=== PATIENT | female | born 1950 | race Caucasian/White ===

== ENCOUNTER 2017-02-03 12:55 | Day surgery (SDC) | payer MEDICARE ==
[~2017-02-03] VITALS: Ht 160 cm; Wt 59.4 kg
[~2017-02-03 12:55] MED LIST: ATEN25TA PO; FURO40TA4 PO; LACT10SO27 PO; Lactated Ringer's 1,000 ML IV ONE; MULT-1018 PO; OMEP20TA24 PO; SPIR100T3 PO
[2017-02-03] MEDS ORDERED: Propofol 10,000 mCg/mL 20 mL Inj ONE (12:56)
[2017-02-03] MEDS ORDERED: Lidocaine PF 1% 30 mL Inj ONE (12:56)
[2017-02-03 13:37] VITALS: BP 97/63; PULSE 90; RESP 16; O2SAT 94
--- NOTE | 2017-02-03 14:18 | PCM.HPANE ---
Patient Data Date of Service: Feb 03, 2017 Surgeon Admitting Provider: Attending Provider:Mike Alvarado MD Primary Care Physician:Other,Physician Other Provider:Lloyd Martinez Anesthesia Reason for Visit Alcoholic Cirrhosis Of Liver Ht/WT & BMI Height (Feet): 5 Height (Inches): 3 Weight (Kilograms): 59.4 Body Mass Index 23.00 Allergies Coded Allergies: No Known Drug Allergies (Verified Allergy, Unknown, 02/03/17) Past Anesthesia History Anesthesia History: Denies:: Anesthesia Reactions, Fam Anesthesia Reaction, Fam Malignant Hypertherm, Malignant Hyperthermia Diabetes History Hx Diabetes?: No MRSA MRSA: No Medications Hypertension Medication: Yes Home Meds Incl Beta Ashutosh: Yes Date Beta Ashutosh Taken: Feb 03, 2017 Time Beta Ashutosh Taken: 08:00 Reported Medications Spironolactone 100 Mg [id number] Mg PO DAILY #30 TABLET Ref 0 02/02/17 Omeprazole Magnesium (Prilosec Otc)20 Mg Tablet.dr20 Mg PO DAILY #1 PKG Ref 0 02/02/17 Multivitamin (Multi Vitamin Daily)1 Each Tablet1 Each PO DAILY 30 Days Ref 0 02/02/17 Lactulose 10 Gm/15 Ml [id number] Gm PO BID 02/02/17 Furosemide 40 Mg Cakpjb01 Mg PO DAILY 02/02/17 Atenolol 25 Mg Zcwlik83 Mg PO DAILY #30 TABLET Ref 0 02/02/17 History History of ENT Problems?: No Hx of Heart Problems?: Yes Cardiovascular History: Positive for:: Irregular Heartbeat (Hx SVT in 1996) Denies:: AICD Pacemaker Valvular Heart Disease Hx of Respiratory Problem?: No Neurological History: Denies:: CVA Hx of GI Problems?: Yes Gastrointestinal History: Positive for:: Cirrhosis (paracentesis 2 weeks ago) Liver Disease Female Hx: Denies:: Currently (raad) Psycho Social History: Positive for:: Hx Depression Hx Surgeries?: Yes (rectal ca-surgery, cone biopsy-cervix) Hx Any Other Health Problems?: No Hx Diabetes: No Hx Alcohol Use: NoHx Substance Use: Yes Smoking Status: Current Every Day Smoker Stop/Bang Treated for Sleep Apnea?: No Do You Have a CPAP Machine?: No S-Snoring: Do You Snore Loudly: No T-Tired: feel tired, fatigued: Yes O-Obsered: Observed not breath: No P-Blood Pressure: treated: No B- Body Mass Index > 35 kg/m2: No A- Age over 50: Yes N- Neck Large Circumference: No G- Gender Male: No ANYI Total Score: 2 ANYI Risk Assessment: Low Risk, <3 Yes Risk Assessment Category Category 1A: Patient has history of documented sleep apnea, and HAS NOT received any narcotic, sedative or anesthesia administration during this stay. Category 1B: Patient has history of documented sleep apnea, and HAS received any narcotic , sedative or anesthesia administration during this stay Category 2: Patient has SUSPECTED Obstructive Sleep Apnea, and HAS received any narcotic , sedative or anesthesia administration during this stay. Category 3: Patient has SUSPECTED Obstructive Sleep Apnea and HAS NOT received narcotic, sedative or anesthesia administration during this stay. Category 4: Outpatient in Procedural Areas with known sleep apnea or who screen positive for High Risk via the STOP/BANG questionnaire. Exam Exam Vital Signs Vital Signs Date Time Temp Pulse Resp B/P Pulse Ox O2 Delivery O2 Flow Rate FiO2 02/03/17 13:37 90 16 97/63 94 Room Air General Appearance: Alert, Oriented X3, Cooperative HEENT/AIRWAY: MP 3, Neck Movement, Mouth Opening (Small) Lungs: Clear to Auscultation, Normal Air Movement Heart: Regular Rate/Rhythm, Normal S1, Normal S2 Meds/Labs/Diagnostics Admission Meds Current Medications Lactated Ringer's (Lr) 1,000 ml @ 10 mls/hr Q24H ONCE IV Last administered on 02/03/17t 13:55; Start 02/03/17 at 06:00; Stop 02/04/17 at 05:59 Plan Impression Patient chart reviewed, patient interviewed and anesthestic plan with risks, benefits, and alternatives discussed, and informed consent obtained. NPO Status: > 8 hours ASA Physical Status: ASA3 Severe Disease (cirrhosis) Anesthetic Plan: MAC Bene/Risks/Altern/Consents: Yes HP Complete Prior to Induction: Yes Caleb Ortega MD Feb 03, 2017 14:18
[2017-02-03] MEDS ORDERED: Lactated Ringer's 1,000 ML IV SCH (14:19)
[2017-02-03] MEDS ORDERED: Atropine 0.4 mg/mL Inj IVPUSH PRN (14:20)
[2017-02-03] MEDS ORDERED: MetoCLOpramide 5 mg/mL 2 mL Inj IVPUSH PRN (14:20)
[2017-02-03] MEDS ORDERED: Ondansetron 2 mg/mL 2 mL Inj IVPUSH PRN (14:20)
[2017-02-03 14:40] VITALS: BP 84/60; PULSE 87; RESP 12; O2SAT 100
[2017-02-03 14:50] VITALS: BP 85/61; PULSE 88; RESP 16; O2SAT 95
--- NOTE | 2017-02-03 14:54 | ENDO ---
[address] [address] ENDOSCOPY PROCEDURE PATIENT: ZAC RODRIGEZ : 1950 MR#: [id number] ADMIT: 02/03/2017 JOB ID: [id number] DATE OF SERVICE: 02/03/2017 TYPE OF OPERATION: Esophagogastroduodenoscopy PREOPERATIVE DIAGNOSIS: Alcoholic cirrhosis. POSTOPERATIVE DIAGNOSIS: 1. One column of grade 1 esophageal varices seen at the gastroesophageal junction at 35 cm from the incisors. 2. Moderate portal hypertensive gastropathy. ANESTHESIA: Monitored anesthesia care. COMPLICATIONS: None. BLOOD LOSS: Minimal. DESCRIPTION OF PROCEDURE: After risks and benefits were explained to the patient, informed consent was obtained. After anesthesia administered, upper endoscope was then inserted in the mouth, intubated into the esophagus, stomach, second portion of duodenum, and mucosa carefully examined. After procedure done, the scope withdrawn and procedure terminated. FINDINGS: Upon inspection of the esophagus, there was one area at the distal esophageal junction which had grade 1 esophageal varices in one column which were nonbleeding. The Z-line located 35 cm from the incisors. Upon entering the stomach, there were no masses, ulcers, or lesions that were seen. There was moderate portal hypertensive gastropathy that was seen. Retroflexion was normal. Duodenal bulb, first and second portions were normal. IMPRESSIONS: Grade 1 esophageal varices seen at the gastroesophageal junction which is F1, small, straight varices, nonbleeding. RECOMMENDATIONS: Repeat EGD in one year for esophageal varices surveillance. Follow up in GI clinic as needed.
[2017-02-03 15:00] VITALS: BP 87/65; PULSE 88; RESP 16; O2SAT 94
--- NOTE | 2017-02-03 15:03 | PCM.ANEP1 ---
Post Anesthesia Phase 1 PACU Phase 1 Assessment Date of Service: Feb 03, 2017 Vital Signs Vital Signs Date Time Temp Pulse Resp B/P Pulse Ox O2 Delivery O2 Flow Rate FiO2 02/03/17 14:40 87 12 84/60 100 Room Air 02/03/17 13:37 90 16 97/63 94 Room Air Anesthetic Administered: MAC Level of Alertness: Sleepy, easy to arouse TRAVIS's with Equal Strength: Yes Pain: No Nausea or Vomiting: No Oxygen Delivery: Room Air Lungs: Normal Air Movement Caleb Ortega MD Feb 03, 2017 15:03
--- NOTE | 2017-02-03 15:06 | PCM.ANEP2 ---
Post Anesthesia Evaluation ASA/CMS Post Anesthesia Date of Service: Feb 03, 2017 VS in Patient's Normal Range?: Yes Resp Stable; Airway Patent?: Yes CV Function & Hydration Stable: Yes Mental Status Recovered?: Yes Pain control Satisfactory?: Yes N/V Control Satisfactory?: Yes Caleb Ortega MD Feb 03, 2017 15:06
[2017-02-03 15:10] VITALS: BP 93/64; PULSE 89; RESP 16; O2SAT 94
[2017-02-03 15:22] VITALS: BP 86/57; PULSE 97; RESP 12; O2SAT 92
== END 2017-02-03 23:59 | disposition home or self-care (01) ==
LOC: END 12:55
PROVIDERS: ATTEND Internal Medicine Gastroenterology
DX: K76.6 Portal hypertension (principal); K31.89 Other diseases of stomach and duodenum; K70.31 Alcoholic cirrhosis of liver with ascites; I85.10 Secondary esophageal varices without bleeding; K70.9 Alcoholic liver disease, unspecified; F17.210 Nicotine dependence, cigarettes, uncomplicated; Z79.899 Other long term (current) drug therapy
CPT/HCPCS: 43235; J7120